=== PATIENT | female | born 1960 | race Caucasian/White ===

== ENCOUNTER → 2018-08-11 | Outpatient (CLI) | payer OTHER ==
--- NOTE | 2018-08-13 13:15 | MM ---
Reason for exam: screening (asymptomatic). Last mammogram was performed 3 years ago. History: Patient is postmenopausal and is nulliparous. Family history of breast cancer in 2 aunts. Cyst aspiration of the left breast, May 2006. Physical Findings: A clinical breast exam by your physician is recommended on an annual basis and results should be correlated with mammographic findings. MG 3D Screening Mammo W/Cad Bilateral CC and MLO view(s) were taken. Prior study comparison: August 25, 2015, bilateral MG screening mammo w CAD. August 24, 2014, bilateral MG screening mammo w CAD. The breast tissue is extremely dense which could obscure a lesion on mammography. Scattered benign round bilateral calcifications. Additional vascular and oil cyst calcifications on the right. No significant changes when compared with prior studies. ASSESSMENT: Negative, BI-RAD 1 RECOMMENDATION: Routine screening mammogram of both breasts in 1 year. Patient should continue monthly self breast exams. A negative report should not preclude additional follow up of suspicious palpable abnormalities.
== END | disposition home or self-care (01) ==
LOC: RADMAMWWP 15:59
PROVIDERS: ATTEND Obstetrics & Gynecology
DX: Z12.31 Encounter for screening mammogram for malignant neoplasm of breast (principal)
CPT/HCPCS: 77063; 77067

== ENCOUNTER → 2018-08-11 | Outpatient (CLI) | payer BC ==
[2018-08-11 15:32] VITALS: BP 176/93; PULSE 78; TEMP 98.8; BMI 19.1
--- NOTE | 2018-08-11 16:02 | P.HPOB ---
History of Present Illness H&P Date: 08/11/18 Chief Complaint: The patient is here for her routine gynecologic exam and mammogram. This is a 58-year-old G0 with an LMP of 2000. The patient is without gynecologic complaints. She is here to establish with this office. His been more than 2 years since her last pelvic exam. She previously saw Dr. Dupree for her gynecologic care. She denies any postmenopausal bleeding. Review of Systems The patient's weight has been stable over the last year. She denies respiratory , cardiac, or G.I. problems. 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 History of Any Multi-Drug Resistant Organisms: None Reported Past Surgical History: Orthopedic Surgery (Left wrist) Additional Past Surgical History / Comment(s): Skin cancer removed. Past Psychological History: No Psychological Hx Reported Smoking Status: Current every day smoker (Half pack per day) Past Alcohol Use History: Occasional (10 per week) Past Drug Use History: None Reported Additional History: She has been since 1995 and is a [employer]que[employer] worker. - Past Family History Sister(s) Family Medical History: Cancer (Breast) Mother Additional Family Medical History / Comment(s): Parkinson's disease. 2 maternal aunts also had breast cancer. Father Additional Family Medical History / Comment(s): Heart disease Medications and Allergies Home Medications Medication Instructions Recorded Confirmed Type Albuterol Sulfate [Proair Hfa] INHALATION PRN 08/11/18 History Beclomethasone Dip 80 Mcg/Puff INHALATION BID 08/11/18 History [Qvar 80 mcg] Allergies Allergy/AdvReac Type Severity Reaction Status Date / Time No Known Allergies Allergy Unverified 08/11/18 15:30 Exam Vital Signs Temp Pulse BP 08/11/18 15:30 98.8 F 78 176/93 Intake and Output 08/11/18 08/11/18 08/11/18 06:59 14:59 22:59 Other: Weight 44.452 kg Height 5'0", BMI 19.1. This is a well-developed well-nourished white female who is alert and oriented times 3 in no acute distress. HEENT: Within normal limits. NECK: Supple without mass or thyromegaly. CHEST AND LUNGS: Clear to auscultation. HEART: Regular rate and rhythm. BREASTS: Are without mass or discharge. AXILLARY EXAM: Negative for adenopathy. BACK: Negative for CVA tenderness. ABDOMEN: Soft, nontender, without palpable masses. PELVIC EXAM: Normal external genitalia with moderate atrophy. Cervix and vagina appear normal with mild to moderate atrophy. There is no unusual discharge. There is no evidence of prolapse. The uterus is midposition, nongravid size and nontender. There are no palpable adnexal masses or tenderness. RECTAL EXAM: rectovaginal exam is negative for mass or tenderness and is negative for occult blood. EXTREMITIES: Nontender. IMPRESSION: 1. 58-year-old menopausal female with normal gynecologic exam. 2. Elevated blood pressure. PLAN: 1. Pap smear was performed. 2. Self breast awareness was discussed with the patient. 3. Screening mammogram will be done today. 4. Osteoporosis prevention was discussed. I have recommended bone density screening. She states she would like to do this next year at her annual exam. 5. I've recommended that she quit smoking given her several reasons why this is important. 6. She states she takes her blood pressure at home. I recommended that she does this on a regular basis and she should follow up with her primary care physician for blood pressure elevations. 7. She will return in one year.
== END ==
LOC: WWCWWP 15:07
PROVIDERS: ATTEND Obstetrics & Gynecology
DX: Z53.9 Procedure and treatment not carried out, unspecified reason (principal)

== ENCOUNTER → 2019-10-26 | Outpatient (CLI) | payer BC ==
[2019-10-26 11:07] VITALS: BP 172/93; PULSE 89; RESP 18; TEMP 99
--- NOTE | 2019-10-26 11:51 | P.HPOB ---
History of Present Illness H&P Date: 10/26/19 Chief Complaint: The patient is here for her routine gynecologic exam and ma mmogram. This is a 59-year-old G0 with an LMP of 2000. The patient is without gynecologic complaints and denies any postmenopausal bleeding. Review of Systems The patient has gained 10 pounds over the last year. She denies respiratory, cardiac, or G.I. problems. Past Medical History Past Medical History: Asthma, Cancer Additional Past Medical History / Comment(s): Skin cancer. 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 History of Any Multi-Drug Resistant Organisms: None Reported Past Surgical History: Orthopedic Surgery Additional Past Surgical History / Comment(s): Skin cancer removed. Left wrist surgery. 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 - Past Family History Sister(s) Family Medical History: Cancer Additional Family Medical History / Comment(s): Breast cancer Mother Additional Family Medical History / Comment(s): Parkinson's disease. 2 maternal aunts also had breast cancer. Father Additional Family Medical History / Comment(s): Heart disease Medications and Allergies Home Medications Medication Instructions Recorded Confirmed Type Albuterol Sulfate [Proair Hfa] 2 puff INHALATION QID 08/11/18 10/26/19 History Beclomethasone Dip 80 Mcg/Puff 2 puff INHALATION DAILY 08/11/18 10/26/19 History [Qvar 80 mcg] Atorvastatin [Lipitor] 10 mg PO DAILY 10/26/19 10/26/19 History Allergies Allergy/AdvReac Type Severity Reaction Status Date / Time No Known Allergies Allergy Unverified 10/26/19 11:07 Exam Vital Signs Temp Pulse Resp BP Pulse Ox 10/26/19 11:03 99.0 F 89 18 172/93 98 Intake and Output 10/25/19 10/26/19 10/26/19 22:59 06:59 14:59 Other: Weight 49.442 kg Height 5 feet 0 inches, weight 109 pounds, BMI 21.3. This is a well-developed well-nourished white female who is alert and oriented times 3 in no acute distress. HEENT: Within normal limits. NECK: Supple without mass or thyromegaly. CHEST AND LUNGS: Clear to auscultation. HEART: Regular rate and rhythm. BREASTS: Are without mass or discharge. AXILLARY EXAM: Negative for adenopathy. BACK: Negative for CVA tenderness. ABDOMEN: Soft, nontender, without palpable masses. PELVIC EXAM: Normal external genitalia with mild atrophy. Cervix and vagina appear normal mild atrophy. There is no unusual discharge. There is no evidence of prolapse. The uterus is midposition, nongravid size and nontender. There are no palpable adnexal masses or tenderness. RECTAL EXAM: Rectovaginal exam is negative for mass or tenderness and is negative for occult blood. EXTREMITIES: Nontender. IMPRESSION: 1. 59-year-old menopausal female with normal gynecologic exam. 2. Elevated blood pressure. PLAN: 1. Pap smear was deferred since she had a normal one on 08/11/2018. 2. Self breast awareness was discussed with the patient. 3. Screening mammogram will be done today. 4. Osteoporosis prevention was discussed. I have stressed the importance of adequate calcium, vitamin D and regular exercise. Recommended amounts of calcium and vitamin D were also discussed. Bone density testing will be done today. 5. I have stressed the importance of quitting smoking. We discussed ways of doing this. 6. We have discussed her elevated blood pressure. She states she will be seeing the print shop chief clerk, Dr. Neal, for this. 7. I have recommended screening colonoscopy since she has never had this done. She wants to avoid taking the prep for this. She will discuss this with her primary care physician. We also discussed alternatives including Cologard testing. She will also discuss this with her primary care physician. 8. She was advised to return in one year for her annual well woman exam.
--- NOTE | 2019-10-26 13:02 | BD ---
EXAMINATION TYPE: Axial Bone Density DATE OF EXAM: 10/26/2019 COMPARISON: NONE CLINICAL HISTORY: 59 YR OLD FEMALE....ICD-10 CODE: Z78.0 POST MENOPAUSAL Height: 59.4 Weight: 105 FRAX RISK QUESTIONS: Family History (Parent hip fracture): YES Glucocorticoids (More than 3mos): YES (Ex: prednisone, prednisolone, methylprednisolone, dexamethasone, and hydrocortisone). History of Fracture in Adulthood: YES Current Tobacco Use: YES RISK FACTORS HISTORY OF: HX OF RT ANKLE/FIBULA FX AT AGE 57 Family History of Osteoporosis: YES, HER MOTHER, WITH HIP FX Postmenopausal woman: YES AT AGE 44 YRS OLD, NATURAL Lost more than 2 inches in height since high school: YES Hyperparathyroidism: NO Adrenal Insufficiency: NO MEDICATIONS: Prednisone or other steroids: QVAR, PROAIR, ZOLAIR INJECTION, AND BREATHING TREATMENTS, FOR YRS Additional Medications: STATIN FOR CHOLESTEROL, Additional History: ASTHMA AND CHOLESTEROL EXAM MEASUREMENTS: Bone mineral densitometry was performed using the [employer] System. Bone mineral density as measured about the Lumbar spine is: ----- L1-L4(G/cm2): 1.098 T Score Values are as follows: ----- L1: -1.8 ----- L2: -0.7 ----- L3: -0.6 ----- L4: 0.3 ----- L1-L4: -1.8 Bone mineral density FIRST DEXA SCAN........BASELINE STUDY Bone mineral density about the R hip (g/cm2): 0.902 Bone mineral density about the L hip (g/cm2): 0.874 T Score values are as follows: -----R Neck: -1.0 -----L Neck: -0.8 -----R Total: -0.8 -----L Total: -1.0 Bone mineral density BASELINE STUDY FRAX%s: THERE IS A 32.2% CHANCE FOR A MAJOR OSTEOPOROTIC FX AND A 2.6% FOR HIP....PROBABILITY FOR F X IN 10 YRS TIME IMPRESSION: Osteopenia lumbar spine. NOTE: T-SCORE=SD OF THE YOUNG ADULT MEAN.
--- NOTE | 2019-10-27 10:10 | MM ---
Reason for exam: screening (asymptomatic). Last mammogram was performed 1 year and 2 months ago. History: Patient is postmenopausal and is nulliparous. Family history of breast cancer in sister and breast cancer in 2 aunts. Cyst aspiration of the left breast, May 2006. Took hormonal contraceptives for 1 year 6 months. Physical Findings: A clinical breast exam by your physician is recommended on an annual basis and results should be correlated with mammographic findings. MG Screening Mammo w CAD Bilateral CC and MLO view(s) were taken. Prior study comparison: August 11, 2018, bilateral MG 3d screening mammo w/cad. August 25, 2015, bilateral MG screening mammo w CAD. The breast tissue is extremely dense which could obscure a lesion on mammography. Finding: There are vascular, dystrophic, round calcifications in both breasts. There is no discrete abnormality. ASSESSMENT: Benign, BI-RAD 2 RECOMMENDATION: Routine screening mammogram of both breasts in 1 year.
== END | disposition home or self-care (01) ==
LOC: WWCWWP 10:19
PROVIDERS: ATTEND Obstetrics & Gynecology
DX: Z12.31 Encounter for screening mammogram for malignant neoplasm of breast (principal); M85.88 Other specified disorders of bone density and structure, other site; Z78.0 Asymptomatic menopausal state
CPT/HCPCS: 77067; 77080